=== PATIENT | female | born 1970 | race Caucasian/White ===

== ENCOUNTER → 2016-05-15 | Outpatient (CLI) | payer OTHER ==
[~2016-05-15] MED LIST: LEVO125T4 PO; LEVO125T72 PO; TAMO20TA47 PO
--- NOTE | 2016-05-15 16:40 | DIAGNOSTIC IMAGING REPORT ---
RIGHT LOWER EXTREMITY VENOUS DOPPLER HISTORY: M79.604 Right leg pain right leg Right COMPARISON STUDY: None. FINDINGS: There is normal compressibility, flow, and augmentation within the right lower extremity deep venous system. IMPRESSION: No DVT within the right lower extremity Electronically signed by: Mark Anthony Parra M.D. 05/15/2016 4:39 PM Dictated Date/Time: 05/15/2016 4:39 PM
--- NOTE | 2016-05-15 16:59 | DIAGNOSTIC IMAGING REPORT ---
RIGHT KNEE 3 VIEWS HISTORY: Right knee pain. COMPARISON: None. FINDINGS: There is no fracture or dislocation. Soft tissues are unremarkable. No radiopaque foreign bodies. No knee effusion. Cartilage spaces are maintained for age. IMPRESSION: Unremarkable right knee. Electronically signed by: Mark Anthony Parra M.D. 05/15/2016 4:57 PM Dictated Date/Time: 05/15/2016 4:57 PM
== END | disposition home or self-care (01) ==
LOC: C.ULTR 16:09
PROVIDERS: ATTEND Physician Assistant
DX: M79.604 Pain in right leg (principal)

== ENCOUNTER → 2016-06-27 | Outpatient (CLI) | payer OTHER ==
[~2016-06-27] MED LIST changes: -LEVO125T4 PO; +LEVO125T5 PO; -TAMO20TA47 PO; +TAMO20TA9 PO; +calcium; +vitamin d
[2016-06-27 14:01] VITALS: BP 131/83; PULSE 62; TEMP 36.8; O2SAT 98
--- NOTE | 2016-06-27 15:52 | Radiation Oncology Follow-Up ---
Radiation Oncology Follow-Up Date of Visit June 27, 2016. (Reema Hinds PA-C) Reason For Visit One-month follow-up cancer survivorship care plan. (Reema Hinds PA-C) Radiation Completion Date 05/29/16 (Reema Hinds PA-C) Diagnosis (1) Intraductal carcinoma of left breast Status: Acute Onset Date: 01/12/2016 Stage: 0 Permanent Comment: STAGING: Left breast, DCIS, grade 3, comedonecrosis, ER/[place] positive Abnormal left breast mammogram followed with serial mammography Status post stereotactic biopsy 01/12/2016 revealing DCIS Estrogen receptor positive and progesterone receptor positive Status post MRI then MRI guided stereotactic biopsy 02/09/2016 benign Status post seed localization segmental mastectomy 03/04/2016 Stage pTis NX MX Status post completion of radiation therapy 05/29/2016. She received 6640 cGy Last Edited By: Reema Hinds on Jun 10, 2016 10:23 (Reema Hinds PA-C) History of Present Illness Ms. Powers is a 45-year-old female who initially presented with a abnormal mammogram on 06/29/2015 which revealed a small 3 mm cluster in the left upper outer quadrant that were benign-appearing; the recommendation was for a repeat mammogram in 6 months. The patient did have a repeat unilateral left diagnostic mammogram on 01/08/2016 which revealed 2 small faint clusters of microcalcifications in the upper outer quadrant of the left breast. The patient underwent a stereotactic biopsy on 01/12/2016 the left breast which revealed ductal carcinoma in situ that was grade 3 with focal comedonecrosis. The tumor was identified is estrogen receptor positive and progesterone receptor positive. The patient subsequently had a bilateral MRI of the breasts on 02/07/2016 which revealed biopsy site changes in the left breast 1 o'clock position as expected and no other evidence of disease. The report did mention a second cluster of faint amorphous microcalcifications and recommended a second biopsy which was completed on 02/09/2016 and only showed fibrocystic changes with calcifications and no evidence of cancer. The patient subsequently was seen at [facility] and underwent a lumpectomy on 2016. Pathology revealed ductal carcinoma in situ, micropapillary type, nuclear grade 3 with comedonecrosis and associated calcification. The DCIS measured up to 5 mm. The margins were free of resection however the closest margin was 1.5 mm and was the anterior margin. The patient was seen by medical oncology who did recommend anti-hormonal therapy due to the positive estrogen receptor status. We are now seeing the patient in consultation discuss the role of adjuvant radiation therapy. She underwent conventional radiation therapy. Radiation was completed 2016. She received received 6640 cGy. (Reema Hinds PA-C) Interim History She's been doing well over the past month. The areas of skin irritation healed without difficulty. At the end of treatment she had radiation dermatitis. It was treated with Silvadene cream. She also had itching that was treated with Lidex cream. She has noticed no changes to her breast. She is noted no masses or tenderness no change of the axilla. She is now on tamoxifen. She denies side effects. She did have a small area on the outer aspect of her incision that became red and then had a small amount of drainage 2 weeks ago. She used Neosporin and this area healed without difficulty. (Reema Hinds PA-C) Allergies Coded Allergies: No Known Allergies (Unverified , 04/02/16) Home Medications Scheduled Levothyroxine Sodium (Synthroid), 1 TAB PO DAILY Levothyroxine Sodium (Levothyroxine Sodium), 1.5 TAB PO DIRECTED Tamoxifen (Nolvadex), 20 MG PO DAILY Review of Systems Gastrointestinal: Symptoms: WNL Oral: Symptoms: No Problems Respiratory: Symptoms: WNL Urinary: Symptoms: WNL Skin: Symptoms: No Problems Other Skin Symptoms: 2 weeks ago incision in axilla area drained - used neosporin - ok now Breast: Right Upper Arm Measurement: 28.3 Right Mid Arm Measurement: 22.5 Right Wrist Measurement: 15.2 Left Upper Arm Measurement: 29.2 Left Mid Arm Measurement: 24.0 Left Wrist Measurement: 15.0 Arm Dominence: Right (Reema Hinds PA-C) Physical Exam Vital Signs Date Time Temp Pulse Resp B/P Pulse Ox O2 Delivery O2 Flow Rate FiO2 06/27/16 14:01 36.8 62 16 131/83 98 General Appearance: no apparent distress Eyes: normal inspection, EOMI ENT: normal ENT inspection, hearing grossly normal Neck: no adenopathy, thyroid normal Respiratory/Chest: lungs clear, no respiratory distress, no accessory muscle use Breast: Breast examination reveals well-healed incision of the left breast. There is resolving hyperpigmentation. There is a small area of the lateral aspect of the incision line that has resolving erythema. There is no drainage or sign of infection. There is minimal edema of the breast. There is no axillary adenopathy. She has no skin retractions or nipple changes. Using the [place] score cosmesis she has a good outcome. The right breast showed no masses or tenderness no axillary adenopathy. Cardiovascular: regular rate, rhythm, no gallop, no murmur Extremities: no pedal edema Neurologic/Psychiatric: no motor/sensory deficits, alert, normal mood/affect Skin: warm/dry (Reema Hinds PA-C) Assessment & Plan Plan: The patient is also seen and examined by Dr. Singleton today. She'll continue regular follow-up with Dr. Chicas, Dr. Escobedo, and Dr. Anthony. She hasn't appointment to see Dr. Rao in September. Today we completed a cancer survivorship care plan. Copy of the document was given to the patient. We discussed follow-up mammography. The patient did wish to continue mammography at the breast Center. She was therefore scheduled for a digital diagnostic mammogram of both breasts. She is due for mammography of the right breast also. She'll continue to do breast self-examinations. We asked her to return to our office in 6 months. She may call if she has any questions or concerns in the interim. (Reema Hinds PA-C) I agree with note created by Reema Hinds PA-C. I reviewed the patient's chart and information with her. I have examined and evaluated the patient. I reviewed relevant clinical information and answered the patient's and/or family' s questions. (Veeral. Singleton MD) Total Time In Follow-Up I spent 20 minutes speaking to the patient performing examination. I spent 20 minutes reviewing information, preparing the survivorship document, and completing this note. (Reema Hinds PA-C) I spent 15 minutes examining and counseling the patient. (Veeral. Singleton MD) Copy To Ryder Chicas M.D.; SIRENA ESCOBEDO M.D.; Maryann Anthony M.D.
== END | disposition home or self-care (01) ==
LOC: C.ONC 13:45
PROVIDERS: ATTEND Physician Assistant Medical
DX: Z08 Encounter for follow-up examination after completed treatment for malignant neoplasm (principal); Z92.3 Personal history of irradiation; Z85.3 Personal history of malignant neoplasm of breast

== ENCOUNTER → 2016-07-19 | Outpatient (CLI) | payer OTHER ==
[2016-07-19 17:06] LABS: THYROID STIMULATING HORMONE 1.76 uIu/ml (0.300-4.500)
== END | disposition home or self-care (01) ==
LOC: C.LABBC 12:10
PROVIDERS: ATTEND Physician Assistant Medical
DX: E06.3 Autoimmune thyroiditis (principal)

== ENCOUNTER → 2016-08-28 | Outpatient (CLI) | payer BC ==
[~2016-08-28] MED LIST changes: +LEVO125T4 PO; -LEVO125T5 PO; +TAMO20TA47 PO; -TAMO20TA9 PO; -calcium; -vitamin d
--- NOTE | 2016-08-28 12:32 | MAMMOGRAPHY REPORT ---
BILATERAL DIGITAL DIAGNOSTIC MAMMOGRAM TOMOSYNTHESIS WITH CAD: 08/28/2016 CLINICAL HISTORY: History of left breast DCIS status post lumpectomy February 2016 and radiation thera py. The patient reports no current complaints. TECHNIQUE: Breast tomosynthesis in addition to standard 2D mammography was performed. Current study was also evaluated with a Computer Aided Detection (CAD) system. Bilateral CC and MLO 2-D and tomosy nthesis images and spot magnification left CC and ML views were obtained. COMPARISON: Comparison is made to exams dated: 02/09/2016 mammogram, 02/09/2016 stereotactic biopsy, 02/07/2016 breast MRI, 01/12/2016 mammogram, 01/12/2016 stereotactic biopsy, and 01/08/2016 mammogra m - [facility]. BREAST COMPOSITION: The tissue of both breasts is heterogeneously dense, which may obscure small mas ses. FINDINGS: There are new expected postsurgical changes in the left upper outer quadrant from prior vinnie mpectomy, including architectural distortion at the lumpectomy bed. Spot magnification views of the lumpectomy bed demonstrate a single punctate calcification in the left lateral anterior breast which is stable dating back to at least the 2009 exam. No suspicious masses or clusters of microcalcificat ions are noted. There is mild diffuse left breast skin thickening, likely a sequela of prior radiati on therapy. The remainder of both breasts are stable compared to prior exams, without suspicious masses, calcific ations, or areas of architectural distortion noted. A biopsy marker clip is again noted within the l eft upper outer quadrant from prior benign stereotactic biopsy. IMPRESSION: ACR-BI-RADS CATEGORY 3: PROBABLY BENIGN Expected post treatment changes in the left breast status post lumpectomy and radiation therapy, with out mammographic evidence of malignancy in either breast. Recommend follow-up diagnostic tomosynthes is mammograms of the left breast in 6 months to reevaluate the posttreatment changes. The patient has been verbally notified of the results. Approximately 10% of breast cancers are not detected with mammography. A negative mammographic report should not delay biopsy if a clinically suggestive mass is present. Hannah Lowe M.D. /:08/28/2016 08:51:47 Upper Marker: Sharon CULP(R)(M), [facility] letter sent: Personal History 3 BI-RADS Code: ACR-BI-RADS Category 3: Probably Benign
== END | disposition home or self-care (01) ==
LOC: C.MAMM 08:21
PROVIDERS: ATTEND Physician Assistant Medical
DX: Z08 Encounter for follow-up examination after completed treatment for malignant neoplasm (principal); Z85.3 Personal history of malignant neoplasm of breast

== ENCOUNTER → 2016-11-07 | Outpatient (CLI) | payer BC ==
[2016-11-07 10:57] LABS: BASO % 0.2 %; BASO ABS # 0.01 K/uL (0-0.2); COMPLETE YES; EOS % 1.4 %; HEMATOCRIT 40.9 % (37-47); IG% 0.2 %; LYMPH % 16.3 %; LYMPH ABS # 0.92 K/uL (1.2-3.4); MEAN CELL VOLUME 90.9 fL (80-100); MEAN CORPUSCULAR HEMOGLOBIN 28.4 pg (25-34); MEAN CORPUSCULAR HGB CONC 31.3 g/dl (32-36); MONO % 9.2 %; NEUT % 72.7 %; PLATELET COUNT 280 K/uL (130-400); WHITE BLOOD COUNT 5.64 K/uL (4.8-10.8)
[2016-11-07 11:19] LABS: ALT/SGPT 25 U/L (12-78); AST/SGOT 14 U/L (15-37); BLOOD UREA NITROGEN 14 mg/dl (7-18); BUN/CREATININE RATIO 16.8 (10-20); CALCIUM 8.9 mg/dl (8.5-10.1); CARBON DIOXIDE 30 mmol/L (21-32); CHLORIDE 108 mmol/L (98-107); CHOLESTEROL 144 mg/dl (0-200); CREATININE 0.83 mg/dl (0.60-1.20); GLUCOSE 98 mg/dl (70-99); POTASSIUM 4.3 mmol/L (3.5-5.1); SODIUM 142 mmol/L (136-145)
[2016-11-07 11:30] LABS: ALB/GLOB RATIO 1.1 (0.9-2); ALKALINE PHOSPHATASE 34 U/L (45-117); CHOLESTEROL/HDL RATIO 3.3; HDL CHOLESTEROL 43 mg/dl; LDL CHOLESTEROL CALCULATED 82 mg/dl; TRIGLYCERIDES 95 mg/dl (0-150); VERY LOW DENSITY LIPOPROT CALC 19 mg/dl
== END | disposition home or self-care (01) ==
LOC: C.LABBC 07:37
PROVIDERS: ATTEND Internal Medicine
DX: D05.12 Intraductal carcinoma in situ of left breast (principal)

== ENCOUNTER → 2017-01-09 | Outpatient (CLI) | payer BC, OTHER ==
[~2017-01-09] MED LIST changes: -LEVO125T4 PO; +LEVO125T5 PO; -TAMO20TA47 PO; +TAMO20TA9 PO; +calcium; +vitamin d
[2017-01-09 14:31] VITALS: BP 134/94; PULSE 79; TEMP 36.9; O2SAT 100
--- NOTE | 2017-01-09 16:32 | Radiation Oncology Follow-Up ---
Radiation Oncology Follow-Up Date of Visit Jan 09, 2017. Reason For Visit 6 month follow-up Radiation Completion Date 05/29/16 Diagnosis (1) Intraductal carcinoma of left breast Status: Resolved Onset Date: 01/12/2016 Stage: 0 Permanent Comment: STAGING: Left breast, DCIS, grade 3, comedonecrosis, ER/[place] positive Abnormal left breast mammogram followed with serial mammography Status post stereotactic biopsy 01/12/2016 revealing DCIS Estrogen receptor positive and progesterone receptor positive Status post MRI then MRI guided stereotactic biopsy 02/09/2016 benign Status post seed localization segmental mastectomy 03/04/2016 Stage pTis NX MX Status post completion of radiation therapy 05/29/2016. She received 6640 cGy Last Edited By: Reema Hinds on Jun 10, 2016 10:23 History of Present Illness Ms. Powers presented with a abnormal mammogram on 06/29/2015 which revealed a small 3 mm cluster in the left upper outer quadrant that were benign-appearing; the recommendation was for a repeat mammogram in 6 months. The patient did have a repeat unilateral left diagnostic mammogram on 01/08/2016 which revealed 2 small faint clusters of microcalcifications in the upper outer quadrant of the left breast. The patient underwent a stereotactic biopsy on 01/12/2016 the left breast which revealed ductal carcinoma in situ that was grade 3 with focal comedonecrosis. The tumor was identified is estrogen receptor positive and progesterone receptor positive. The patient subsequently had a bilateral MRI of the breasts on 02/07/2016 which revealed biopsy site changes in the left breast 1 o'clock position as expected and no other evidence of disease. The report did mention a second cluster of faint amorphous microcalcifications and recommended a second biopsy which was completed on 02/09/2016 and only showed fibrocystic changes with calcifications and no evidence of cancer. The patient subsequently was seen at [facility] and underwent a lumpectomy on 2016. Pathology revealed ductal carcinoma in situ, micropapillary type, nuclear grade 3 with comedonecrosis and associated calcification. The DCIS measured up to 5 mm. The margins were free of resection however the closest margin was 1.5 mm and was the anterior margin. The patient was seen by medical oncology who did recommend anti-hormonal therapy due to the positive estrogen receptor status. We are now seeing the patient in consultation discuss the role of adjuvant radiation therapy. She underwent conventional radiation therapy. Radiation was completed 2016. She received received 6640 cGy. Interim History She has been doing well in regards to her breast. She is noted no masses or tenderness and no change of the axilla. She's had no swelling of her arm. She is up-to-date on mammography. She is followed closely by her breast surgeon and medical oncologist. She does have a feeling of tightness in the left shoulder. She feels there is a decrease in range of motion on flexion and extension. There continues to be some mild swelling along the lower quadrants of the breast. She was instructed to use a compression bra. She was wearing this at night. This seemed to cause increased discomfort and she has stopped using the compression bra. She denies pain while sitting still. She can have some discomfort up to level 3-4 with stretching and range of motion. She has been trying to do stretching exercises at night. Allergies Coded Allergies: No Known Allergies (Unverified , 04/02/16) Home Medications Scheduled Levothyroxine Sodium (Synthroid), 1 TAB PO DAILY Levothyroxine Sodium (Levothyroxine Sodium), 1.5 TAB PO DIRECTED Tamoxifen (Nolvadex), 20 MG PO DAILY [calcium], DAILY [vitamin d], DAILY Review of Systems Gastrointestinal: Symptoms: WNL Oral: Symptoms: No Problems Respiratory: Symptoms: WNL Skin: Symptoms: No Problems Breast: Right Upper Arm Measurement: 28.0 Right Mid Arm Measurement: 24.0 Right Wrist Measurement: 15.5 Left Upper Arm Measurement: 28.5 Left Mid Arm Measurement: 23.5 Left Wrist Measurement: 15.0 Arm Dominence: Right Physical Exam Vital Signs Date Time Temp Pulse Resp B/P (MAP) Pulse Ox O2 Delivery O2 Flow Rate FiO2 01/09/17 14:31 36.9 79 18 134/94 100 Fatigue: None General Appearance: no apparent distress Eyes: normal inspection, EOMI ENT: normal ENT inspection, hearing grossly normal Neck: no adenopathy, thyroid normal Respiratory/Chest: lungs clear, no respiratory distress, no accessory muscle use Breast: Breast examination reveals well-healed incisions of the left breast. There is slight hyperpigmentation. There is very minimal edema. There are no masses or tenderness no axillary adenopathy. Using the [place] score cosmesis she has a good outcome. The right breast showed no masses or tenderness and no axillary adenopathy. Cardiovascular: regular rate, rhythm, no gallop, no murmur Abdomen: non tender, soft, no organomegaly Extremities: normal inspection, + pertinent finding (normal range of motion of the shoulders.) Neurologic/Psychiatric: no motor/sensory deficits, alert, normal mood/affect Pain Management Pain Duration: since radiation Pain Location: None Patient Preferred Pain Scale: 0 - 10 Pain Rating (0-10): 4 Additional Pain Description: tightness Pain Management Plan Discomfort occurs with range of motion. There is no pain in the arm is down. Laboratory Studies Test 11/07/16 07:39 White Blood Count 5.64 K/uL (4.8-10.8) Red Blood Count 4.50 M/uL (4.2-5.4) Hemoglobin 12.8 g/dL (12.0-16.0) Hematocrit 40.9 % (37-47) Mean Corpuscular Volume 90.9 fL (80-100) Mean Corpuscular Hemoglobin 28.4 pg (25-34) Mean Corpuscular Hemoglobin Concent 31.3 g/dl (32-36) Platelet Count 280 K/uL (130-400) Mean Platelet Volume 10.0 fL (7.4-10.4) Neutrophils (%) (Auto) 72.7 % Lymphocytes (%) (Auto) 16.3 % Monocytes (%) (Auto) 9.2 % Eosinophils (%) (Auto) 1.4 % Basophils (%) (Auto) 0.2 % Neutrophils # (Auto) 4.10 K/uL (1.4-6.5) Lymphocytes # (Auto) 0.92 K/uL (1.2-3.4) Monocytes # (Auto) 0.52 K/uL (0.11-0.59) Eosinophils # (Auto) 0.08 K/uL (0-0.5) Basophils # (Auto) 0.01 K/uL (0-0.2) RDW Standard Deviation 42.0 fL (36.4-46.3) RDW Coefficient of Variation 12.7 % (11.5-14.5) Immature Granulocyte % (Auto) 0.2 % Immature Granulocyte # (Auto) 0.01 K/uL (0.00-0.02) Sodium Level 142 mmol/L (136-145) Potassium Level 4.3 mmol/L (3.5-5.1) Chloride Level 108 mmol/L (98-107) Carbon Dioxide Level 30 mmol/L (21-32) Anion Gap 4.0 mmol/L (3-11) Blood Urea Nitrogen 14 mg/dl (7-18) Creatinine 0.83 mg/dl (0.60-1.20) Estimated GFR () 98.7 Estimated GFR (Non- 85.2 BUN/Creatinine Ratio 16.8 (10-20) Random Glucose 98 mg/dl (70-99) Calcium Level 8.9 mg/dl (8.5-10.1) Total Bilirubin 0.3 mg/dl (0.2-1) Aspartate Amino Transferase (AST) 14 U/L (15-37) Alanine Aminotransferase (ALT) 25 U/L (12-78) Alkaline Phosphatase 34 U/L (45-117) Total Protein 6.8 gm/dl (6.4-8.2) Albumin 3.6 gm/dl (3.4-5.0) Globulin 3.2 gm/dl (2.5-4.0) Albumin/Globulin Ratio 1.1 (0.9-2) Triglycerides Level 95 mg/dl (0-150) Cholesterol Level 144 mg/dl (0-200) HDL Cholesterol 43 mg/dl LDL Cholesterol, Calculated 82 mg/dl VLDL Cholesterol, Calculated 19 mg/dl Cholesterol/HDL Ratio 3.3 Thyroid Stimulating Hormone (TSH) 2.710 uIu/ml (0.300-4.500) Additional Studies Patient: VASU POWERS [facility] Rec: [id number] Address1: [address]: [id number] Date: 1970 Sex: F Ref Phy: Reema Hinds PA-C Att Phy: Reema Hinds PA-C Sara Phy: Ryder Chicas M.D. Inter Phy: Hannah Lowe MD [facility] Zip: [place] [address] SC: [facility] Report #: [id number] Paraprofessional Aide Teacher: KHADRA Diagnosis: HX LEFT BREAST CA/POST RADIATION/BILATERAL DUE Service Date: 08/28/16 MNE: [id number] Ordering Dr: Reema Hinds PA-C CC: Reema Hinds PA-C CONF: DICTATED BY: Hannah Lowe MD MAMMOGRAPHY REPORT BILATERAL DIGITAL DIAGNOSTIC MAMMOGRAM TOMOSYNTHESIS WITH CAD: 08/28/2016 CLINICAL HISTORY: History of left breast DCIS status post lumpectomy February 2016 and radiation therapy. The patient reports no current complaints. TECHNIQUE: Breast tomosynthesis in addition to standard 2D mammography was performed. Current study was also evaluated with a Computer Aided Detection (CAD ) system. Bilateral CC and MLO 2-D and tomosynthesis images and spot magnification left CC and ML views were obtained. COMPARISON: Comparison is made to exams dated: 02/09/2016 mammogram, 2015 stereotactic biopsy, 02/07/2016 breast MRI, 01/12/2016 mammogram, 2015 stereotactic biopsy, and 01/08/2016 mammogram - [facility]. BREAST COMPOSITION: The tissue of both breasts is heterogeneously dense, which may obscure small masses. FINDINGS: There are new expected postsurgical changes in the left upper outer quadrant from prior lumpectomy, including architectural distortion at the lumpectomy bed. Spot magnification views of the lumpectomy bed demonstrate a single punctate calcification in the left lateral anterior breast which is stable dating back to at least the 2009 exam. No suspicious masses or clusters of microcalcifications are noted. There is mild diffuse left breast skin thickening, likely a sequela of prior radiation therapy. The remainder of both breasts are stable compared to prior exams, without suspicious masses, calcifications, or areas of architectural distortion noted. A biopsy marker clip is again noted within the left upper outer quadrant from prior benign stereotactic biopsy. IMPRESSION: ACR-BI-RADS CATEGORY 3: PROBABLY BENIGN Expected post treatment changes in the left breast status post lumpectomy and radiation therapy, without mammographic evidence of malignancy in either breast. Recommend follow-up diagnostic tomosynthesis mammograms of the left breast in 6 months to reevaluate the posttreatment changes. The patient has been verbally notified of the results. Approximately 10% of breast cancers are not detected with mammography. A negative mammographic report should not delay biopsy if a clinically suggestive mass is present. Hannah Lowe M.D. /:08/28/2016 08:51:47 Assistant Site Manager: Sharon CULP(Rachael)([place]), [facility] letter sent: Personal History 3 BI-RADS Code: ACR-BI-RADS Category 3: Probably Benign Dictated by: Hannah Lowe MD Signed by: Hannah Lowe MD Assessment & Plan Plan: The patient is also seen today by Dr. Singleton. She'll continu mammography as scheduled. She has a mammogram scheduled for February 28. We discussed stretching exercises for the shoulder. She'll start these gradually and continue on a regular basis. She was also offered to go to physical therapy if needed. She'll continue follow-up with the breast surgeon and medical oncologist. We asked her to return to our office in 1 year. She may call if she has any questions or concerns in the interim. If she decides to have physical therapy she may call and we will give her a referral. Assessment & Plan (Attending) ADDENDUM: I agree with note created by Reema Hinds PA-C. I reviewed the patient's chart and information with her. I have examined and evaluated the patient. I reviewed relevant clinical information and answered the patient's and /or family's questions. LIME TRIMMER Total Time In Follow-Up I spent 20 minutes speaking to the patient and performing examination. I spent 15 minutes reviewing information in completing this note. Total Time (Attending) In Follow-Up I spent 15 minutes examining and counseling the patient. LIME TRIMMER Copy To Ryder Chicas M.D.; SIRENA ABARCA M.D.; Maryann Anthony M.D.
== END | disposition home or self-care (01) ==
LOC: C.ONC 14:19
PROVIDERS: ATTEND Physician Assistant Medical
DX: Z08 Encounter for follow-up examination after completed treatment for malignant neoplasm (principal); Z92.3 Personal history of irradiation; Z85.3 Personal history of malignant neoplasm of breast

== ENCOUNTER → 2017-02-28 | Outpatient (CLI) | payer BC ==
--- NOTE | 2017-02-28 14:38 | MAMMOGRAPHY REPORT ---
UNILATERAL LEFT DIGITAL DIAGNOSTIC MAMMOGRAM TOMOSYNTHESIS WITH CAD: 02/28/2017 CLINICAL HISTORY: History of left breast cancer status post lumpectomy February 2016 and radiation the rap. The patient reports no current complaints. TECHNIQUE: Breast tomosynthesis in addition to standard 2D mammography was performed. Current study was also evaluated with a Computer Aided Detection (CAD) system. Left CC and MLO 2-D and tomosynthes is images and spot magnification left CC and ML views were obtained. COMPARISON: Comparison is made to exams dated: 08/28/2016 mammogram, 02/09/2016 mammogram, 02/09/2016 stereotactic biopsy, 02/07/2016 breast MRI, 01/12/2016 mammogram, and 01/12/2016 stereotactic biopsy - [facility]. BREAST COMPOSITION: The tissue of the left breast is heterogeneously dense, which may obscure small masses. FINDINGS: There are no suspicious masses, calcifications, or areas of nonsurgical architectural dist ortion within the left breast. There has been no significant interval change. There are stable post surgical changes in the left upper outer quadrant from prior lumpectomy, including architectural dist ortion at the lumpectomy bed. A linear scar marker denotes a scar on the left upper outer breast. S pot magnification views of the lumpectomy bed demonstrate a single punctate calcification in the left lateral anterior breast which is stable dating back to at least the 2009 exam. There is stable mild diffuse left breast skin thickening, likely a sequela of prior radiation therapy. Round obscured 9 mm mass in the left upper outer quadrant seen on the tomosynthesis images is decreased in size compar ed to the 2013 exam and is consistent with a benign cyst. IMPRESSION: ACR-BI-RADS CATEGORY 3: PROBABLY BENIGN Stable posttreatment changes in the left breast, without mammographic evidence of malignancy in the l eft breast. Recommend bilateral diagnostic tomosynthesis mammograms in 6 months, to reevaluate left breast posttreatment changes and for routine mammography of the right breast. The patient has been verbally notified of the results. Approximately 10% of breast cancers are not detected with mammography. A negative mammographic report should not delay biopsy if a clinically suggestive mass is present. Hannah Lowe M.D. /:02/28/2017 08:14:51 [employer]ap Bi Developer: Melina Rutherford, [facility] letter sent: Personal History 3 BI-RADS Code: ACR-BI-RADS Category 3: Probably Benign
== END | disposition home or self-care (01) ==
LOC: C.MAMM 07:52
PROVIDERS: ATTEND Physician Assistant Medical
DX: Z08 Encounter for follow-up examination after completed treatment for malignant neoplasm (principal); Z85.3 Personal history of malignant neoplasm of breast; Z92.3 Personal history of irradiation; Z98.890 Other specified postprocedural states

== ENCOUNTER → 2017-05-09 | Outpatient (CLI) | payer BC | END | disposition home or self-care (01) | LOC: C.PAPS 13:44 | PROVIDERS: ATTEND Obstetrics & Gynecology | DX: Z01.419 Encounter for gynecological examination (general) (routine) without abnormal findings (principal); D05.10 Intraductal carcinoma in situ of unspecified breast; Z79.810 Long term (current) use of selective estrogen receptor modulators (SERMs); Z80.3 Family history of malignant neoplasm of breast ==